=== PATIENT | male | born 1955 | race Two or more races ===

== ENCOUNTER 2016-12-03 07:48 | Day surgery (SDC) | payer OTHER ==
[2016-12-03] MEDS ORDERED: LACTATED RINGERS 1,000 ML IV ONE (08:03)
[2016-12-03] MEDS ORDERED: fentaNYL 100 MCG/2 ML VIAL IVP ONE (09:13)
[2016-12-03] MEDS ORDERED: MIDAZOLAM 2 MG/2 ML VIAL IVP ONE (09:13)
[2016-12-03 10:16] VITALS: BP 128/84
== END 2016-12-03 07:49 | disposition home or self-care (01) ==
LOC: SDS 07:48
PROVIDERS: ATTEND Internal Medicine
PROC: 0DBH8ZX Excision of Cecum, Via Natural or Artificial Opening Endoscopic, Diagnostic (ICD-10-PCS; principal; 2016-12-03 09:00)
DX: Z12.11 Encounter for screening for malignant neoplasm of colon (principal); K57.30 Diverticulosis of large intestine without perforation or abscess without bleeding; K64.8 Other hemorrhoids; K63.5 Polyp of colon; K62.1 Rectal polyp; I10 Essential (primary) hypertension; Z87.891 Personal history of nicotine dependence
CPT/HCPCS: 45380; 88305; J7120